=== PATIENT | male | born 1945 | race Caucasian/White ===

== ENCOUNTER 2023-06-17 13:17 | Outpatient (AMB) | payer MEDICARE, BC, SELFPAY ==
--- NOTE | 2023-06-17 14:00 | HO.SPINEOV ---
Intake Intake Visit Reasons: thoracic and lumbar pain Intake Note: Mr. Barlow is here today c/o mid to low back pain. MRI done @ [facility]/brought disc. Wafer Fabricator Required: No Assessment & Plan Assessment & Plan (1) Scoliosis of lumbar region due to degenerative disease of spine in adult: Code(s): M41.56 - Other secondary scoliosis, lumbar region (2) Lumbar radiculopathy, right: Code(s): M54.16 - Radiculopathy, lumbar region Plan Dear colleague Thank you for referring Roshan Barlow to the office today with a chief complaint of debilitating right leg pain. HPI: This 78-year-old male developed symptoms of neurogenic claudication proximally 15 years ago. He underwent a in laminotomy L4-5 approximately 10 years ago. He states that over the years he developed progressive pain down the right side of his back into his buttocks to the front of his thigh. Initially, was able to walk long distances since before the symptoms developed, however over time in the pain-free distances became shorter. He became dependent on a walker to relieve the symptoms and eventually was mostly homebound due to pain. He is deconditioned disease mostly immobile due to the pain. Sitting down or laying down or the best positions. He tried [id number] medications, tramadol, physical therapy, chiropractic therapy and multiple injections without results. He comes to visit me to see if there is a minimally invasive surgical option to treat his symptoms as he has no quality of life. PMH: Hypertension,hypothyroidism, hypercholesterolemia Medications: Allopurinol, lisinopril, levothyroxine, Pravachol, Neurontin, meloxicam, tramadol, tamsulosin, vitamin-D. Glimepiride was stopped on 09/02 as his A1c was 5. Allergies: NKDA Social history: He lives with his son. He has a nonsmoker. Physical Exam: Pleasant male sitting in a wheelchair. He stands with a flexed position. There is a lumbar degenerative scoliosis with the convexity towards the right side. Radiological Studies: MRI of the lumbar spine done at [facility] in [place] demonstrates a lumbar degenerative scoliosis L2-L5 with severe neuroforaminal stenosis, especially L4 on the right side. An x-ray again demonstrates the lumbar degenerative scoliosis and there seems to be an auto fusion of L2-3 and L3-4. Impression/Plan: This 78-year-old male is suffering from debilitating unilateral neurogenic claudication associated with significant lumbar degenerative scoliosis causing spinal stenosis and neuroforaminal stenosis. We discussed surgical options. The only option would be a minimally invasive correction of the lumbar degenerative scoliosis, which I would do through an oblique lumbar interbody fusion either or not combined with a oblique lateral lumbar interbody fusion, trans Kambin approach. I described both procedures in detail. I would like to have a CT of the lumbar spine before I can make my final recommendation. The patient will return to my office after the CT is done to discuss final surgical plan. The patient is aware that postoperatively he will most likely be in a rehab facility to treat the deconditioning. I am optimistic that the right leg pain will respond to surgery. Thank you for allowing me to participate in your patients care. total time spent was 60 minutes in counseling ,coordination of plan, personal review of imaging, surgical decision making and subsequent plan Dawson Polo MD, PhD Spine Fellowship Trained Neurosurgeon Director, [facility] Orders: Orders CT lumbar spine wo IV con Today M41.56 - Other secondary scoliosis, lumbar region Coding Level of Care Code New Pt Level 5 (17695) Diagnoses Scoliosis of lumbar region due to degenerative disease of spine in adult M41.56 Lumbar radiculopathy, right M54.16
== END 2023-06-17 14:52 | disposition home or self-care (01) ==
PROVIDERS: Visit Provider Neurological Surgery
DX: M41.56 Other secondary scoliosis, lumbar region (principal); M54.16 Radiculopathy, lumbar region
CPT/HCPCS: 99205

== ENCOUNTER → 2023-06-17 13:17 | Outpatient (BNVA) | payer MEDICARE, BC, SELFPAY | PROVIDERS: Visit Provider Neurological Surgery | DX: M54.16 Radiculopathy, lumbar region (principal); M41.56 Other secondary scoliosis, lumbar region | CPT/HCPCS: 99202 ==

== ENCOUNTER 2023-08-27 14:16 | Outpatient (AMB) | payer MEDICARE, BC, SELFPAY ==
--- NOTE | 2023-08-27 14:24 | MHC.OFFVIS ---
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: No Allergies No Known Allergies Allergy (Verified 10/17/23 10:18) [facility] Medical History (Updated 09/02/23 @ 16:48 by Mariella Galeas, RN) Hypothyroidism Bronchiectasis without complication Hyperlipidemia Diet-controlled diabetes mellitus Mild aortic stenosis Arthritis Gout Hx of bronchitis HTN (hypertension) Surgical History History of back surgery Hx of colonoscopy History of total right hip replacement Social History (Updated 09/02/23 @ 16:31 by Mariella Galeas, RN) Household Members Other:: son Housing: House Are you a primary housekeeper caregiver to a significant other at home: No Do you presently have visiting nurse or other home services: Yes (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 He is suffering from debilitating right lumbar radiculopathy and back pain that has a wheelchair bound. Imaging reviews in extensive lumbar degenerative scoliosis. I ordered an CT of the lumbar spine as I was expecting auto fusion at the higher region. In the feet, the CT scan shows an auto fusion at L2-3, which is favorable as this means that I will have to fuse less levels than anticipated. I discussed an oblique lumbar interbody fusion L3-4 L4-5 with the patient and his son to indirectly decompress the nerve structures to treat his right leg pain and back pain. He is deconditioned and therefore there is a high probability that he will receive rehab after the surgery. He was cleared by his primary care physician and tax accountant and will be cleared by the cupola melting supervisor this Friday. He is scheduled to undergo the procedure on September 07. Thank you for letting me take care of this patient. Do not hesitate to call me with any questions or concerns. I spent 50 minutes in his consult reviewing imaging and discussing plan of care and expected postoperative course with the patient and his son. Dawson Polo MD, PhD Spine Fellowship Trained Neurosurgeon Director, [facility] Coding Level of Care Code Est Pt Level 5 (32876) Diagnoses Scoliosis of lumbar region due to degenerative disease of spine in adult M41.56 Lumbar radiculopathy, right M54.16
== END 2023-08-27 15:58 | disposition home or self-care (01) ==
PROVIDERS: Visit Provider Neurological Surgery
DX: M41.56 Other secondary scoliosis, lumbar region (principal); M54.16 Radiculopathy, lumbar region
CPT/HCPCS: 99215

== ENCOUNTER → 2023-08-27 14:16 | Outpatient (BNVA) | payer MEDICARE, BC, SELFPAY | PROVIDERS: Visit Provider Neurological Surgery | DX: M54.16 Radiculopathy, lumbar region (principal); M41.56 Other secondary scoliosis, lumbar region | CPT/HCPCS: 99212 ==

== ENCOUNTER 2023-09-09 07:49 | Inpatient (IN) | payer MEDICARE, BC, SELFPAY ==
[2023-09-02 16:43] VITALS: BMI 40.6
--- NOTE | 2023-09-08 13:23 | P.CONAN_ITS ---
Documented by User: Elvi Haas NP 09/08/23 13:35 HPI - Anesthesia Eval Consult details Narrative: 78yo M for Cystoscopy, Ureteroroscopy, Retro, Laser with stent placement Telephone PAT per family request. Pulmo cleared. Recent episode of bronchitis, Bronchiectisis on CT scan . Abx with improvement of symptoms. Optimized and stable. Cardiac cleared. Mild aortic stenosis PMFSH Active Problems Active Problems: All Active Problems (Updated 09/02/23 @ 16:48 by Mariella Galeas, TIA) Lumbar radiculopathy, right (Acute) Scoliosis of lumbar region due to degenerative disease of spine in adult (Acute) Past Medical History Medical History (Updated 09/02/23 @ 16:48 by Mariella Galeas RN) Hypothyroidism Bronchiectasis without complication Hyperlipidemia Diet-controlled diabetes mellitus Mild aortic stenosis Arthritis Gout Hx of bronchitis HTN (hypertension) Surgical History Surgical History History of back surgery Hx of colonoscopy History of total right hip replacement Social History Social History (Updated 09/02/23 @ 16:31 by Mariella Galeas RN) Household Members Other:: son Housing: House Are you a primary career based intervention coordinator to a significant other at home: No Do you presently have visiting nurse or other home services: Yes (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 during the day and 2 attentive sons) Patient Tobacco Use Status: Never used Tobacco Use of substances other than those prescribed or required for medical reasons: No Are you DNR?: No Advance Directives: No Advance Directives Information Provided: Yes Advance Directives on File: No Poor oral hygiene: No Meds Allergies Allergy/AdvReac Type Severity Reaction Status Date / Time No Known Allergies Allergy Verified 09/09/23 07:59 Home Medications Medication Instructions Recorded Confirmed Last Taken Type albuterol sulfate 90 mcg/actuation 1 - 2 puff inhalation Q4-6H PRN 09/02/23 09/09/23 Unknown History aerosol inhaler Shortness Of Breath Or Wheezing allopurinol 100 mg tablet 100 mg PO DAILY 09/02/23 09/09/23 09/08/23 History budesonide-formoterol HFA 160 1 inh inhalation DIRECTED 09/02/23 09/09/23 09/02/23 History mcg-4.5 mcg/actuation aerosol inhaler (Symbicort) cholecalciferol (vitamin D3) 50 50 mcg PO DAILY 09/02/23 09/09/23 09/08/23 History mcg (2,000 unit) capsule (Vitamin D3) fluticasone 250 mcg-salmeterol 50 1 ea inhalation Q12H 09/02/23 09/09/23 09/08/23 History mcg/dose blistr powdr for inhalation (Wixela Inhub) gabapentin 300 mg capsule 600 mg PO BID 09/02/23 09/09/23 09/09/23 History levothyroxine 25 mcg tablet 25 mcg PO DAILY@0600 09/02/23 09/09/23 09/09/23 History lisinopril 2.5 mg tablet 2.5 mg PO DAILY 09/02/23 09/09/23 09/08/23 History meloxicam 15 mg tablet 15 mg PO DAILY PRN pain 09/02/23 09/09/23 09/02/23 History pravastatin 20 mg tablet 20 mg PO BEDTIME 09/02/23 09/09/23 09/08/23 History tamsulosin 0.4 mg capsule 0.8 mg PO DAILY 09/02/23 09/09/23 09/08/23 History tramadol 50 mg tablet 50 mg PO Q6H PRN moderate pain 09/02/23 09/09/23 09/02/23 History Exam Height,Weight and Vital Signs: Height 5 ft 1 in Weight 97.522 kg Pertinent Lab Results Pertinent Lab Results: CBC and BMP 08/2023 from outside facility WNL Narrative Narrative: EKG 08/2023 NSR @ 77 ECHO 07/2023 Limited study d/t body habitus Nml LV size and systolic function, grade 1 DD. RV is not well seen. Mild conc LVH LVEF 55-60% Nml bi-atrial size. Nml LA pressure. Indeterminate diastolic function. Mild . Assessment and Plan Assessment Anesthesia Assessment: Chart Reviewed Documented by User: Lu Palacios MD 09/09/23 10:35 PMFSH Past Medical History Medical History (Updated 09/02/23 @ 16:48 by Mariella Galeas, TIA) Hypothyroidism Bronchiectasis without complication Hyperlipidemia Diet-controlled diabetes mellitus Mild aortic stenosis Arthritis Gout Hx of bronchitis HTN (hypertension) Family History Family history of problems with anesthesia: No Surgical History Surgical History History of back surgery Hx of colonoscopy History of total right hip replacement History of Problems with Anesthesia: No Social History Social History (Updated 09/02/23 @ 16:31 by Mariella Galeas, TIA) Household Members Other:: son Housing: House Are you a primary career based intervention coordinator to a significant other at home: No Do you presently have visiting nurse or other home services: Yes (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 during the day and 2 attentive sons) Patient Tobacco Use Status: Never used Tobacco Use of substances other than those prescribed or required for medical reasons: No Are you DNR?: No Advance Directives: No Advance Directives Information Provided: Yes Advance Directives on File: No Poor oral hygiene: No Meds Allergies Allergy/AdvReac Type Severity Reaction Status Date / Time No Known Allergies Allergy Verified 09/09/23 07:59 Home Medications Medication Instructions Recorded Confirmed Last Taken Type albuterol sulfate 90 mcg/actuation 1 - 2 puff inhalation Q4-6H PRN 09/02/2311/27 Unknown History aerosol inhaler Shortness Of Breath Or Wheezing allopurinol 100 mg tablet 100 mg PO DAILY 09/02/23 09/09/23 09/08/23 History budesonide-formoterol HFA 160 1 inh inhalation DIRECTED 09/02/23 09/09/23 09/02/23 History mcg-4.5 mcg/actuation aerosol inhaler (Symbicort) cholecalciferol (vitamin D3) 50 50 mcg PO DAILY 09/02/23 09/09/23 09/08/23 History mcg (2,000 unit) capsule (Vitamin D3) fluticasone 250 mcg-salmeterol 50 1 ea inhalation Q12H 09/02/23 09/09/23 09/08/23 History mcg/dose blistr powdr for inhalation (Wixela Inhub) gabapentin 300 mg capsule 600 mg PO BID 09/02/23 09/09/23 09/09/23 History levothyroxine 25 mcg tablet 25 mcg PO DAILY@0600 09/02/23 09/09/23 09/09/23 History lisinopril 2.5 mg tablet 2.5 mg PO DAILY 09/02/23 09/09/23 09/08/23 History meloxicam 15 mg tablet 15 mg PO DAILY PRN pain 09/02/23 09/09/23 09/02/23 History pravastatin 20 mg tablet 20 mg PO BEDTIME 09/02/23 09/09/23 09/08/23 History tamsulosin 0.4 mg capsule 0.8 mg PO DAILY 09/02/23 09/09/23 09/08/23 History tramadol 50 mg tablet 50 mg PO Q6H PRN moderate pain 09/02/23 09/09/23 09/02/23 History Exam Airway Mallampati Class: III TM Dist: >3cm Neck ROM: Limited Assessment and Plan Assessment Anesthesia Assessment: Anesthesia Plan Discussed Final Anesthetic Review Family History of Problems with Anesthesia: No History of Problems with Anesthesia: No NPO: Yes ASA Class: III Final Preanesthetic Review: No Changes in Pt Med Stat, Meds/Allgs Chart Reviewed, Consent Obtained/Reviewed and Anes Risks/Benef Reviewed Patient Risk: Intermediate Procedure Risk: Intermediate Anesthetic Plan Anesthetic Plan: GA Disposition: Standard PACU
[2023-09-09] VITALS (32 sets, daily range): BP systolic 86–150; BP diastolic 43–85; PULSE 66–99; RESP 16–22; TEMP 36.1–36.8; O2SAT 88–100; BMI 40.4
--- NOTE | ~2023-09-09 | FL_ITS ---
EXAMINATION: XR FLUOROSCOPY WITH IMAGES CLINICAL INFORMATION: Chronic back pain. COMPARISON: Lumbar spine CT June 2023 and MRI July 2022. TECHNIQUE: Fluoroscopy Supervised By: Christ. Fluoroscopy Time: 2.58 minutes. Cumulative Dose: 107 + 40 mGy. DAP: 33 Gycm2 + 0.7 mGym2. Images: 4. FINDINGS: Images demonstrate posterior fusion hardware with rods and bilateral transpedicular screws from L3 to L5 and interbody fusion hardware at L3-L4 and L4-L5. FL/FL guidance in OR IMPRESSION: Fluoroscopy guidance for lumbar spine surgery.
--- NOTE | 2023-09-09 06:56 | MHC.SHP ---
Pre-Procedural Eval Section A - 24 Hr Update-Section A only Date of Service: 09/09/23 The patient is an INPATIENT: No Changes since office visit: No Cold of Flu in the past 2 weeks, No New Medical Problems, No Changes in Medication and No Patient answered all questions The patient has been examined within 24 hours of the surgical procedure. The History & Physical has been completed within 30 days and I have reviewed it.: No Section B - Complete if H&P > 30 days Chief Complaint: Other secondary scoliosis,radiculopathy Allergies: Allergies Allergy/AdvReac Type Severity Reaction Status Date / Time No Known Allergies Allergy Verified 09/02/23 16:29 Review of Systems Sugical H&P ROS: Negative: Constitution, Cardiovascular, Respiratory, Neurological, Psychiatric, Hem-Onc, Allergic/Immunologic, Gastrointestinal, Genitourinary, Musculoskeletal, Integumentary, Endocrine and Eyes/Ears/Nose/Throat Exam Surgical H&P Exam: Not Evaluated: HEENT, Not Evaluated: Heart, Not Evaluated: Lungs, Not Evaluated: Extremities, Not Evaluated: Abdomen, Not Evaluated: Skin and Not Evaluated: Neurological Plan Diagnosis/Plan: Unchanged L3-4, L4-5 oblique lumbar interbody fusion Time Spent With Patient Time: Total time managing care of this patient today __5__ minutes.
--- NOTE | 2023-09-09 08:42 | PHA.MEDREC ---
Pharmacy Consult ? Medication Reconciliation Pharmacy has completed the medication reconciliation. Reviewed med rec done by nursing
[2023-09-09] MEDS: Albuterol Sulfate (0.083%) 2.5 MG/3 ML VIAL.NEB INHALE (08:45)
[2023-09-09] MEDS: methocarbamoL 750 MG TABLET PO (08:45)
[2023-09-09 08:46] LABS: Glucose, Whole Blood 94 mg/dL (60-115)
[2023-09-09] MEDS: Lactated Ringers 1,000 ML 100 ML IVCONT (08:46)
--- NOTE | 2023-09-09 14:13 | W.PM.OPN ---
Operative Note Operative Note Date of Service: 09/09/23 Narrative: Preop Diagnosis: 1.) Lumbar degenerative scoliosis 2.) Lumbar radiculopathy, right side Procedure: L3-4 and L4-5 discectomy, arthrodesis and implantation cage through an anterolateral, retroperitoneal approach; posterior instrumented fusion L3-L5; allograft Consent Informed Consent was obtained for this operation. I have explained the nature, purpose and benefits of the operation. I have discussed the risks and benefit of the operation including possible complications or adverse events with patient/family. Alternative(s) were discussed with the patient with their relative benefits and risks as well as the consequences of not accepting the operation were included in obtaining consent. Surgeon: YAZMIN MONTILLA MD, PHD Procedure Assisted By: Manny Nelson Description of Procedure This 78-year-old male suffering from intractable right lumbar radiculopathy that has him incapacitated. His MRI shows a lumbar degenerative scoliosis with lateral listhesis L4-5. The patient was offered an oblique lumbar interbody fusion to correct the lumbar degenerative scoliosis and indirectly decompress the nervous structures. The procedure complications were explained. The patient was consented. The patient was brought to the operating room and endotracheally intubated. The patient was turned in a lateral position with the left side up. Prep and drape was done followed by timeout. A small incision was made in the left lower abdominal quadrant. The muscle fascia was opened after which the 3 muscle layer was split to enter the retroperitoneal space. Dilators were docked in the anterior one third of the L4-5 disc space followed by a retractor. The retractor was opened. The L4-5 disc space was exposed. An annulotomy was done after which an elevator Stanton was used to release the disc material from its endplates and to perforate the contralateral side. A partial discectomy was done. An 8 mm and 10 mm height trial implant was inserted. The discectomy was completed. The endplates were prepared. An 10 x 50 mm with 0 degree lordosis 4 web cage filled with allograft was inserted into the disc space under fluoroscopic guidance. And then attention was turned to the L3-4 disc space. The retractor was placed in the anterior 1/3 of the disc space. An annulotomy was done after which an elevate Stanton was advanced contralaterally. The diskectomy was done. An 8 mm trial implant was inserted. The endplates were prepared after which an 8 mm x 45 mm x 0 degree lordosis 4 Web cage was inserted under fluoroscopic guidance. This resulted in correction of the lateral listhesis at scoliosis.. The retractor was removed. Hemostasis was done. The incision was closed in 2 layers. Steri-Strips used to approximate incision. An OpSite with Tegaderm was used to cover the incision. This marked first part of the procedure. The patient was turned prone on the Ildefonso spine table. 2C arms were installed for fluoroscopy. Prep and drape was done followed by a second timeout. 2 paramedian incisions were made lateral from the L3-L5 pedicles. The muscle fascia was opened after which the muscle layer was split bluntly to expose the posterolateral gutter. The following steps were taken. A pediguard tap was used to create a transpedicular trajectory into the vertebral body. A K wire was placed. A specially designed instrument was advanced over the K wire to decorticate the posterolateral gutter in preparation for the posterolateral fusion. A pedicle screw was advanced over the K wire and the K wire was removed. The steps were done for the bilateral L3, L4 and L5 pedicles. A total of 6 screws were placed with a diameter of 6.5 x 45 mm. Pedicle screws were connected with 70 mm stacia bilaterally and locked down with locking caps. The extension towers were removed. The posterolateral gutter was filled with allograft to complete the posterolateral [] fusion Hemostasis was done and the incision was closed in 2 layers. Steri-Strips were used to approximate the incision. An OpSite were taken and was used to cover the incision. All sponge and needle counts were correct. Patient was extubated and transferred in stable is to recovery room. Anesthesia: General Estimated Blood Loss (ml): 30 mL Duration of Surgery: 2 hours Complications: None Postoperative Plan: Admit to inpatient for observation
[2023-09-09] MEDS: fentaNYL citrate/PF 100 MCG/2 ML VIAL 50 MCG IVPUSH ×4 (14:30→15:05)
[2023-09-09] MEDS: oxyCODONE HCl Immed Release 5 MG TABLET PO (14:53)
[2023-09-09] MEDS: HYDROmorphone HCl 1 MG/ML SYRINGE IVPUSH ×2 (16:28→22:11)
[2023-09-09] MEDS: ceFAZolin Sodium/Dextrose,Iso 2 GM/50 ML PIGGYBACK IV (17:28)
--- NOTE | 2023-09-09 17:46 | PC.NURSE ---
Fabienne left on son's phone with patient permission updating him with patients room assignment on [facility]
[2023-09-09] MEDS: 0.9 % Sodium Chloride 1,000 ML 75 ML IVCONT (18:22)
[2023-09-09] MEDS: Acetaminophen 1,000 MG/100 ML PIGGYBACK 400 MG IV (18:22)
[2023-09-09] MEDS: oxyCODONE HCl Immed Release 5 MG TABLET 10 MG PO (18:34)
--- NOTE | 2023-09-09 19:42 | PC.NURSE ---
Pt sat 88%on 3L - pt order is for 2L and to contact provider for o2 <93% gentry texted neuro/spine PA Carlos Bernardo - stated ok to titrate him up to maintain sat. informed him sat 90s on 4L. PA told RN to contact overnight hospitalist with any other issues unless critical. informed him no hospitalist consult in his orders - stated doesnt need a consult and pt is signed over to them at 1900 Will cont to monitor o2 and titrate as needed
[2023-09-09] MEDS: Gabapentin 300 MG CAPSULE 600 MG PO (20:05)
[2023-09-09] MEDS: Pravastatin Sodium 20 MG TABLET PO (20:05)
[2023-09-09] MEDS: Docusate Sodium 100 MG CAPSULE PO (20:05)
[2023-09-10] MEDS: ceFAZolin Sodium/Dextrose,Iso 2 GM/50 ML PIGGYBACK IV ×2 (00:29→05:59)
[2023-09-10] MEDS: Acetaminophen 1,000 MG/100 ML PIGGYBACK 400 MG IV ×2 (01:15→06:55)
[2023-09-10] MEDS: HYDROmorphone HCl 1 MG/ML SYRINGE IVPUSH (03:01)
[2023-09-10 04:00] VITALS: BP 122/68; BP 139/60; PULSE 85; PULSE 91; RESP 16; RESP 18; TEMP 36.3; TEMP 36.9; O2SAT 96; O2SAT 97
[2023-09-10] MEDS: Levothyroxine Sodium 25 MCG TABLET PO (06:02)
[2023-09-10 07:07] VITALS: BP 123/58; PULSE 84; RESP 16; TEMP 36.6; O2SAT 96
[2023-09-10] MEDS: Fluticasone/Vilanterol 200/25 BLST.W.DEV 1 PUFF INHALE (07:56)
[2023-09-10 07:58] VITALS: PULSE 91; RESP 16; O2SAT 96
[2023-09-10] MEDS: Cholecalciferol (Vitamin D3) 25 MCG TABLET 50 MCG PO (08:31)
[2023-09-10] MEDS: Docusate Sodium 100 MG CAPSULE PO (08:31)
[2023-09-10] MEDS: Tamsulosin HCL 0.4 MG CAPSULE 0.8 MG PO (08:31)
[2023-09-10] MEDS: allopurinoL 100 MG TABLET PO (08:31)
[2023-09-10] MEDS: lisinopriL 2.5 MG TABLET PO (08:31)
[2023-09-10] MEDS: Gabapentin 300 MG CAPSULE 600 MG PO (08:31)
--- NOTE | 2023-09-10 08:35 | MHC.CM.PN ---
CM met with Patient at bedside and addressed IMM with him, providing Patient with the original and a copy has been placed on the chart. CM also spoke with Son/HCP/Roshan @ listed # who agreed to bring in a copy of Patient's HCP and who confirmed that Patient's PCP is Dr. Seda Soler in [place] @ [phone].Patient lives in a house with his Son/Berry and he used a walker LAB [facility] to assist with mobility (no home O2). Patient's goal is for Acute Rehab at [place]; Patient will benefit from a PT Eval to assist with disposition. CM has initiated and will follow for dc planning.
--- NOTE | 2023-09-10 08:41 | PM.DS ---
DS: Providers Provider Date of Service: 09/10/23 Date of admission: 09/09/23 07:49 Primary care physician: Nonstaarthur Physician DS: Summary Time Attestation Discharge Coordination Time: discharge time of ____ minutes Quality: Safe Use of Opioids Does Pt have an Active Cancer Diagnosis on the Problem List?: No Quality: Stroke Does the patient have a stroke diagnosis?: No Physical Exam Vital Signs: Vital Signs: Last Vital Signs Temp 97.9 F 09/10/23 07:07 Pulse 91 09/10/23 07:58 Resp 16 09/10/23 07:58 BP 123/58 L 09/10/23 07:07 Pulse Ox 96 09/10/23 07:07 O2 Del Method Nasal Cannula 09/10/23 07:07 O2 Flow Rate 3 09/10/23 04:00 BMI result Body Mass Index 40.4 DS: Data Data Completed and Pending Labs on day of discharge: Laboratory Results - last 24 hr 09/09/23 09/09/23 08:10 08:43 POC Glucose 94 Blood Type A Positive Antibody Screen NEGATIVE Discharge Plan Discharge Anticipated Discharge Date/Time: 09/10/23 08:49 Patient Disposition: Xfer Inpatient Rehab Fac Discharge Diagnosis: s/p L3-4 & L4-5 Oblique lumbar interbody fusion Referrals: Physician,Beena [Primary Care Provider] - 1 Week Discharge Medications: Continued fluticasone propion-salmeterol [Wixela Inhub] 250-50 mcg/dose blister with device 1 ea INHALATION Q12H meloxicam 15 mg tablet 15 mg PO DAILY PRN (Reason: pain) allopurinol 100 mg tablet 100 mg PO DAILY levothyroxine 25 mcg tablet 25 mcg PO DAILY@0600 tamsulosin 0.4 mg capsule 0.8 mg PO DAILY gabapentin 300 mg capsule 600 mg PO BID pravastatin 20 mg tablet 20 mg PO BEDTIME albuterol sulfate 90 mcg/actuation HFA aerosol inhaler 1 - 2 puff INHALATION Q4-6H PRN (Reason: Shortness Of Breath Or Wheezing) lisinopril 2.5 mg tablet 2.5 mg PO DAILY budesonide-formoterol [Symbicort] 160-4.5 mcg/actuation HFA aerosol inhaler 1 inh inhalation DIRECTED cholecalciferol (vitamin D3) [Vitamin D3] 50 mcg (2,000 unit) Capsule 50 mcg PO DAILY Held tramadol 50 mg tablet 50 mg PO Q6H PRN (Reason: moderate pain) Hold Instructions: Resume on 09/24/23. Continue when oxycodone Rx is complete Discharge Orders: Discharge Order (Routine); Ordered 09/10/23 Ordered By: Denilson Nj Diet: Advance to usual diet Activity on Discharge: As tolerated Stand Alone Forms: Patient Portal Discharge page Activity Restrictions/Additional Instructions: After your spinal surgery we ask you to observe the following restrictions/guidelines: Activity: With lumbar fusion surgery it is normal to have days in the first couple of weeks where you have increased leg pain. This usually lasts 1-2 days and self resolves with the continuation of medication. Attempt to stay mobile and continue activity as tolerated. It is normal to feel some discomfort as you increase your activity, but that will improve with time. We ask you avoid heavy lifting or activities that cause pain. As a general rule, 8lbs is a safe limit for lifting right after surgery. Walk as much as you feel comfortable but not to exhaustion. You will feel extra tired the first few days after surgery. Stay well hydrated. It is OK to walk up and down stairs You may return to driving when you are off narcotics (such as vicodin, oxycodone, dilaudid, etc), and you are back to normal functional capacity. If you have any concerns please check with office before driving. Return to work is specific to each patient and each surgery, so please speak with your doctor/PA at first follow up. Please bring paperwork such as FMLA at that time if you need it filled out. Medications: It is recommended that you take Tylenol 500 mg every 4 hours for the 1st week postoperatively, ?alongside ibuprofen 600 mg every 8 hours. We will give you a short supply of narcotics after surgery (usually one weeks worth). ??Please use this for breakthrough pain that is refractory to the Tylenol ibuprofen. If you need more please call the office but do not use more than prescribed. You will need to give our office 48 hours notice if you need narcotics refilled and we do not fill narcotics on weekends or evenings. If you are on a narcotic, it is a good idea to take a stool softener such as colace or senna to avoid constipation If you take blood thinner such as aspirin, Plavix, Coumadin, Effient, Eliquis etc for conditions such as Afib, DVT, Pulmonary embolus, coronary disease, stents etc please speak with your surgeon about specific details as to when you can resume these medications. You can resume NSAIDs on post op day 1 (eg: Motrin, Naproxen, etc). Follow up: Please call the office, , after surgery to arrange a 3 week follow up for wound check. Wound Care: You may remove your dressing on the first day after surgery. ?You may ?leave open to air. Please do not remove the steri strips underneath. they will fall off on their own in one week. IT IS NORMAL FOR THE WOUND TO OOZE OR BE BLOODY FOR A FEW DAYS AFTER SURGERY. ?IF THIS HAPPENS JUST PLACE NEW DRESSING OVER IT TO AVOID STAINING CLOTHES. You may shower on post op day # 1 We ask that you do not let the water soak the wound. If it does get wet, just towel dry lightly. Please do not scrub your incision or place any type of chemical/ointment on the wound. No tub baths, pools or jacuzzis for one month. If you have any leaking or redness from your wound, or fevers, please call office Care Plan Goals: Return to normal activity as tolerated. Health Concerns: None. Plan of Treatment: Discharge to half-way rehabilitation facility. Assessment: POD: 1 Procedure: L3-4, L4-5 OLIF Patient reports he is doing well. He feels his symptoms are much better than pre-operatively. He still reports stiffness in his low back, with good relief with po pain medication. He is voiding well using bedside urinal. He is tolerating diet. Prior to surgery he was using a walker on his home in a wheelchair if traveling outside of his home due to the severity of his neurogenic claudication. As a result of this, he has not been up walking around as of yet. Afebrile, vital signs stable. The patient has good strength in his lower extremities. His sensation is intact. There are no new neurological deficits. Back dressings are dry without signs of hematoma. Juan-lateral dressing is dry without signs of hematoma. No active sanguineous drainage noted. Plan: From our standpoint the patient meets criteria to be medically discharged to a half-way rehabilitation facility. We will wait for PT evaluation, and appreciate their recommendations. I wrote out a physical prescription for Oxycodone 5mg and gave it to his nurse so it can be filled when he transfers to rehab. This plan was discussed with the attending neurosurgeon Dr. Polo. Denilson Polo MD,PhD [facility]
--- NOTE | 2023-09-10 08:52 | HO.NEUROPN_ITS ---
Neurosurgery Operative Note Date of Service: 09/10/23 Narrative: POD: 1 Procedure: L3-4, L4-5 OLIF Patient reports he is doing well. He feels his symptoms are much better than pre-operatively. He still reports stiffness in his low back, with good relief with po pain medication. He is voiding well using bedside urinal. He is tolerating diet. Prior to surgery he was using a walker on his home in a wheelchair if traveling outside of his home due to the severity of his neurogenic claudication. As a result of this, he has not been up walking around as of yet. Afebrile, vital signs stable. The patient has good strength in his lower extremities. His sensation is intact. There are no new neurological deficits. Back dressings are dry without signs of hematoma. Juan-lateral dressing is dry without signs of hematoma. No active sanguineous drainage noted. Plan: From our standpoint the patient meets criteria to be medically discharged to a assisted rehabilitation facility. We will wait for PT evaluation, and appreciate their recommendations. I wrote out a physical prescription for Oxycodone 5mg and gave it to his nurse so it can be filled when he transfers to rehab. This plan was discussed with the attending neurosurgeon Dr. Polo. Denilson Polo MD,PhD [facility]
[2023-09-10] MEDS: oxyCODONE HCl Immed Release 5 MG TABLET 10 MG PO (12:33)
--- NOTE | 2023-09-10 12:42 | MHC.CM.PN ---
Patient has been medically cleared for dc to acute rehab today. Patient will dc to his first choice facility ([facility]) today at 4PM, via [facility].IMM addressed this morning. CM left a detailed message for Son/HCP/Roshan @[phone], informing him of the dc plan.
--- NOTE | 2023-09-10 14:24 | MHC.CM.PN ---
Dr. Nj has given Patient's Son/HCP/Roshan permission to transport Patient to [facility] himself; [facility] has been cancelled via tiger text and acknowledged by Paul.
[2023-09-10 16:37] VITALS: BP 130/66; PULSE 70; RESP 18; TEMP 36.4; O2SAT 97
--- NOTE | 2023-09-11 10:34 | HO.POSTANES ---
Post Anesthesia Evaluation Post Anesthesia Evaluation Date of Service: 09/10/23 Vital Signs: Patient seen on 09/10/23 at 715am 123/58, 84, 16, 97.9F, 96%NC Anesthesia: General Endotracheal-GETA Mental Status: Awake Pain Control: Satisfactory Nausea/Vomiting: None Hydration: Adequate Anesthesia-Related Issues: No Anes. Related Issues
== END 2023-09-10 17:15 | DRG 458 ==
LOC: HO.SSSA 07:58 → HO.IMC 17:40
PROVIDERS: Neurological Surgery; Admitting Provider Physician Assistant; PCP Family Medicine; Visit Provider Physician Assistant
PROC: 0SG10A0 Fusion of 2 or more Lumbar Vertebral Joints with Interbody Fusion Device, Anterior Approach, Anterior Column, Open Approach (ICD-10-PCS; principal; 2023-09-09 10:40)
DX: M51.16 Intervertebral disc disorders with radiculopathy, lumbar region (principal); M41.56 Other secondary scoliosis, lumbar region; Z79.51 Long term (current) use of inhaled steroids; Z79.890 Hormone replacement therapy; Z79.899 Other long term (current) drug therapy
CPT/HCPCS: 82947; 86850; 86900; 86901; 94640; 97162; C1713; C9290; J0131; J0665; J0690; J1100; J1170; J2405; J2704; J3010; L8699

== ENCOUNTER → 2023-09-09 07:49 | Outpatient (BNV) | payer MEDICARE, BC, SELFPAY | PROVIDERS: Admitting Provider Physician Assistant; Visit Provider Neurological Surgery | DX: M54.16 Radiculopathy, lumbar region (principal); M41.56 Other secondary scoliosis, lumbar region | CPT/HCPCS: 20930; 22558; 22585; 22612; 22614; 22840; 22853; 99024; 99499 ==

== ENCOUNTER 2023-10-17 10:05 | Outpatient (REF) | payer MEDICARE, BC, SELFPAY | END 2023-10-17 10:06 | disposition home or self-care (01) | LOC: HO.HOSX 10:05 | PROVIDERS: PCP Family Medicine; Visit Provider Physician Assistant | DX: M54.16 Radiculopathy, lumbar region (principal) | CPT/HCPCS: 99212 ==

== ENCOUNTER 2023-10-17 10:05 | Outpatient (AMB) | payer MEDICARE, BC, SELFPAY ==
--- NOTE | 2023-10-17 10:17 | A.SPINEOV_ITS ---
Intake Intake Visit Reasons: 1st post op Intake Note: Mr. Barlow is here today for 1st post-op. Field Marketing Associate Required: No Allergies No Known Allergies Allergy (Verified 10/17/23 10:18) Assessment & Plan Assessment & Plan (1) Lumbar radiculopathy, right: Code(s): M54.16 - Radiculopathy, lumbar region Plan Procedure: L3-4 and L4-5 AKOSUA Isaac comes in today for his 1st postoperative visit. He reports he is overall satisfied with the surgery, however feels very much the same as he did prior to surgery. He reports no increased pain in no increased radiculopathy. He did seems somewhat discouraged that he was not already feeling better, however he was encouraged that he should be happy with his progress thus far, as he still is in the acute healing phase of his surgery. He has only been up out of his wheelchair a few times to ambulate with the assistance of his walker at the ehabilitation facility he is at. His son accompanies him to the visit today who reports they are very conservative with his rehab therapy, and asked for updated therapy restrictions from our office. Thus, I wrote them a letter encouraging them to practice gentle range of motion and ADL/mobility training. Additionally, the patient reports the rehabilitation facility has had him on subcutaneous Lovenox since his surgery. He was not on this medication prior to surgery, and the rehab facility asked him to ask us if he should remain on his Lovenox. I recommended that they discontinue his Lovenox assuming he was not on this medication prior to surgery in the prescriber of this medication does not have an active indication other than postoperative prophylaxis. No new neurological deficits. Patient is able to ambulate well, rises from a seated position without difficulty. Incision sites are closed, well healing, with no signs of drainage. We will follow-up with the patient in 6 weeks for his 2nd postoperative visit. At that time we will get x-rays to review with the patient. Coding Level of Care Code Global (42215) Diagnoses Lumbar radiculopathy, right M54.16
== END 2023-10-17 10:37 | disposition home or self-care (01) ==
PROVIDERS: PCP Family Medicine; Visit Provider Physician Assistant
DX: M54.16 Radiculopathy, lumbar region (principal)
CPT/HCPCS: 99024

== ENCOUNTER 2023-11-28 11:06 | Outpatient (AMB) | payer MEDICARE, BC, SELFPAY ==
--- NOTE | 2023-11-28 11:51 | A.SPINEOV_ITS ---
Intake Visit Reasons: 2nd post op with xrays Intake Note: Mr. Barlow is here toay for his 2nd post-op appointment with x-rays. Product Management Manager Required: No Allergies No Known Allergies Allergy (Verified 11/28/23 11:52) Assessment & Plan Assessment & Plan (1) Hemiparesis: Code(s): G81.90 - Hemiplegia, unspecified affecting unspecified side Category: Medical Plan Mr Barlow is about 2-1/2 months out from his L3-4, L4-5 oblique lumbar interbody fusion. He has had tremendous relief of his leg pain and back pain since surgery. He is here with his son today who reports that he is down to minimal pain medication in the patient could not be more happy about that. However, he continues to have a diffuse weakness which does not allow him to walk or stand on his own. He was hopeful that with time after the surgery the feeling would improve but unfortunately it has not. He has had these symptoms now for least a year or more, only getting worse. He thinks everyone thought that it was from the lumbar stenosis. He also tells me that he has weakness of his left arm. He also reports bladder problems, that sound like urinary frequency and possibly prostate related but in the end he does have a significant amount of difficulty with getting his bladder emptied. He goes to the bathroom to urinate about every hour so. On my examination today, I tried to have him stand up out of his wheelchair, but he is unable to even get slightly off the chair. He has a max assist to get to a standing position. His cranial nerves are intact, there is no facial asymmetry. His speech is fluent his affect is appropriate, a memory appears to be intact. He has significant w eakness in his upper extremities, both hands are about a 3/5. Biceps are 4/5. His right triceps is 4-5 his left triceps is 1 to 2/5. I was unable to test his deltoids because of rotator cuff issues. His iliopsoas are 3/5 on the right and 1 to 2/5 on the left. Quadriceps and tibialis are normal strength. Has absent reflexes all throughout the right, 2+ reflexes on the left biceps and triceps. 3+ reflex in the left patella. No clonus, no Angulo's sign. Impression: Status post L3-4, L4-5 oblique lumbar interbody fusion with excellent relief postoperatively of his leg pain. His x-rays today look great. He is continuing to have significant mobility issues due to diffuse weakness. I am concerned that this gentleman has some kind of overlying neurological condition outside of the lumbar stenosis that is still causing him to have significant mobility issues. He has a degree of hemiparesis as outlined in my physical exam. This could be from an old stroke or some other kind of cranial pathology so I think an MRI of the brain would be warranted. Also, given the hemiparesis, bladder retention and the bilateral hand weakness in iliopsoas weakness a cervical MRI would be appropriate as well to exclude myelopathy. He would like to do these in [place] closer to his home. Once they are completed I will see him back to review the imaging. If these things are negative, he will likely need to have a neurology evaluation. Total amount of time spent in this visit was 20 minutes in discussion of symptoms, ordering brain and cervical imaging and subsequent plan of care Carlos Polo MD,PhD [facility] Orders: Orders MR cervical spine wo con Today G81.90 - Hemiplegia, unspecified affecting unspecified side MR head/brain wo con Today G81.92 - Hemiplegia, unspecified affecting left dominant side Coding Level of Care Code Est Pt Level 3 (13178) Diagnoses Hemiparesis G81.90
== END 2023-11-28 12:18 | disposition home or self-care (01) ==
PROVIDERS: PCP Family Medicine; Visit Provider Physician Assistant
DX: G81.90 Hemiplegia, unspecified affecting unspecified side (principal)
CPT/HCPCS: 99024

== ENCOUNTER → 2023-11-28 11:06 | Outpatient (BNVA) | payer MEDICARE, BC, SELFPAY | PROVIDERS: PCP Family Medicine; Visit Provider Physician Assistant ==

== ENCOUNTER 2023-11-28 11:08 | Outpatient (REF) | payer MEDICARE, BC, SELFPAY ==
--- NOTE | ~2023-11-28 | XR_ITS ---
EXAMINATION: XR LUMBOSACRAL SPINE CLINICAL INFORMATION: Radiculopathy lumbar region. Per technologist, patient unable to stand. Exam performed with patient seated. Radiopaque artifacts are the chair patient was sitting in. Best possible images obtained at this time. Limited visualization. COMPARISON: Fluoroscopy in OR images of September 09, 2023. MR thoracic spine 07/25/2022. CT lumbar spine 07/02/2023. TECHNIQUE: 2 views of the lumbar spine. Severely limited visualization. Per technologist, patient unable to stand. Exam performed with patient seated. Radiopaque artifacts are the chair patient was sitting in. Best possible images obtained at this time. Limited visualization. FINDINGS: S-shaped thoracolumbar scoliosis. Degenerative changes in the imaged portion of the lower thoracic spine. Atherosclerotic aortoiliac calcifications. Posterior fusion hardware with rods and bilateral transpedicular screws spanning L3-L5 and interbody fusion hardware at L3-L4 and L4-L5. Hardware appears intact. Grade 1 retrolisthesis of L2 on L3 and L3 on L4. XR/XR lumbar spine 2-3V IMPRESSION: 1. Posterior fusion hardware spanning L3-L5 and interbody fusion hardware at L3-L4 and L4-L5. Hardware appears intact. 2. Grade 1 retrolisthesis of L2 on L3 and L3 on L4.
== END 2023-11-28 11:09 | disposition home or self-care (01) ==
LOC: HO.HOSX 11:08
PROVIDERS: Visit Provider Physician Assistant
DX: Z48.89 Encounter for other specified surgical aftercare (principal); G81.90 Hemiplegia, unspecified affecting unspecified side; Z98.1 Arthrodesis status
CPT/HCPCS: 72100; 99212